=== PATIENT | female | born 1960 | race Caucasian/White ===

== ENCOUNTER 2019-04-17 06:29 | Inpatient (IN) | payer OTHER ==
[2019-04-17] MEDS ORDERED: Acetaminophen 500 MG Tab PO ONE (06:45)
[2019-04-17] MEDS ORDERED: Scopolamine 1.5 MG Transdermal Patch TRDERM ONE (06:45)
[2019-04-17] MEDS ORDERED: Gabapentin 300 MG Cap PO ONE (06:45)
[2019-04-17] MEDS ORDERED: Celecoxib 200 MG Cap PO ONE (06:45)
[2019-04-17] MEDS ORDERED: cefOXitin 2 GM Vial ONE (06:52)
[2019-04-17] MEDS ORDERED: Dextrose 5%-Lactated Ringers 1,000 ML IV SCH (07:00)
[2019-04-17] MEDS ORDERED: Propofol 200 MG/20 ML SDV ONE (07:10)
[2019-04-17] MEDS ORDERED: Succinylcholine 200 MG/10 ML MDV ONE (07:10)
[2019-04-17] MEDS ORDERED: Glycopyrrolate 0.2 MG/ML 5 ML MDV ONE (07:10)
[2019-04-17] MEDS ORDERED: Dexamethasone 4 MG/ML SDV ONE (07:10)
[2019-04-17] MEDS ORDERED: Rocuronium 50 MG/5 ML Vial ONE (07:10)
[2019-04-17] MEDS ORDERED: fentaNYL 250 MCG/5 ML SDV ONE ×2 (07:10→09:04)
[2019-04-17] MEDS ORDERED: Neostigmine Methylsulfate 1 MG/ML 5 ML Syringe ONE (07:10)
[2019-04-17] MEDS ORDERED: Ondansetron 4 MG/2 ML SDV ONE (07:10)
[2019-04-17] MEDS ORDERED: Lactated Ringers 1,000 ML ONE (07:12)
[2019-04-17 07:18] LABS: HEMOGLOBIN A1C 5.7 % (4.5-6.2)
[2019-04-17] MEDS ORDERED: cefOXitin 2 GM in Sodium Chloride 0.9% 50 ML IV ONE (07:30)
[2019-04-17] MEDS ORDERED: Ketamine 500 MG/5 ML MDV IV SCH (08:00)
[2019-04-17] MEDS ORDERED: Ketamine 50 MG in Sodium Chloride 0.9% 49.5 ML IV SCH (08:00)
[2019-04-17] MEDS ORDERED: Lidocaine 2% 100 MG/5 ML Syringe IVPUSH SCH (08:00)
[2019-04-17] MEDS ORDERED: Lidocaine 0.4%/D5W 2 GM/500 ML BAG IV SCH (08:00)
[2019-04-17] MEDS ORDERED: Labetalol 20 MG/4 ML Syringe ONE (09:28)
[2019-04-17] MEDS ORDERED: Metoclopramide 10 MG/2 ML SDV IVPUSH PRN (12:35)
[2019-04-17] MEDS ORDERED: Ondansetron 4 MG/2 ML SDV IVPUSH PRN (12:35)
[2019-04-17] MEDS ORDERED: Labetalol 20 MG/4 ML Syringe IVPUSH PRN (12:35)
[2019-04-17] MEDS ORDERED: hydrOXYzine HCl 100 MG/2 ML SDV IM PRN (12:35)
[2019-04-17] MEDS ORDERED: diphenhydrAMINE 50 MG/ML SDV IVPUSH PRN (12:35)
[2019-04-17] MEDS ORDERED: HYDROmorphone 1 MG/ML Syringe IV PRN (12:39)
[2019-04-17] MEDS ORDERED: HYDROmorphone 0.5 MG/0.5 ML Syringe IVPUSH PRN (12:39)
[2019-04-17] MEDS ORDERED: Pantoprazole 40 MG Vial IVPUSH SCH (14:00)
[2019-04-17] MEDS: Gabapentin 250 MG/5 ML Solution ML 470 ML Bottle PO SCH ×2 (14:27→21:39)
[2019-04-17] MEDS: Acetaminophen Soln 650 MG/20.3 ML UD Cup PO SCH ×2 (14:28→20:15)
[2019-04-17] MEDS: cefOXitin 2 GM in Sodium Chloride 0.9% 50 ML IV SCH ×3 (15:44→22:08)
[2019-04-17] MEDS: Heparin Sodium 5,000 Units/ML Vial SUBCUT SCH (15:46)
[2019-04-17] MEDS ORDERED: MVI, Adult with Vitamin K 10 ML, Thiamine 200 MG, Chromium/Copper/Mang/Selen/Zn 1 ML in... IV SCH ×4 (16:00)
[2019-04-17] MEDS: Dextrose 5%-Lactated Ringers 1,000 ML IV SCH (20:52)
[2019-04-18] MEDS: Acetaminophen Soln 650 MG/20.3 ML UD Cup PO SCH ×4 (03:00→20:24)
[2019-04-18] MEDS: Heparin Sodium 5,000 Units/ML Vial SUBCUT SCH ×2 (03:00→15:43)
[2019-04-18] MEDS: cefOXitin 2 GM in Sodium Chloride 0.9% 50 ML IV SCH ×5 (03:03→20:24)
[2019-04-18] MEDS ORDERED: Iopamidol 612 MG/ML 50 ML SDV PO STA (03:07)
[2019-04-18] MEDS: Dextrose 5%-Lactated Ringers 1,000 ML IV SCH ×2 (03:22→09:34)
--- NOTE | 2019-04-18 04:09 | CRLCR ---
Indication: Thomas-en-Y leak check. Technique: Abdomen 2 view Comparison: None Findings/Impression: Two submitted images. On the 1st image the patient is status post Thomas-en-Y with oral contrast in the distal esophagus as well as proximal small bowel. Left upper quadrant drain and right upper quadrant surgical clips are present. On the 2nd image, there is continued transit into the small bowel without definite evidence of leak. Dictated by Russ Piña MD @ Apr 18 2019 4:07AM Signed by Dr. Russ Piña @ Apr 18 2019 4:08AM
[2019-04-18] MEDS ORDERED: Ondansetron 4 MG Tab.DIS PO PRN (07:05)
[2019-04-18] MEDS ORDERED: hydrOXYzine HCl 25 MG Tab PO PRN (07:06)
[2019-04-18] MEDS ORDERED: valACYclovir 1,000 MG Tab PO SCH (09:00)
[2019-04-18] MEDS: Celecoxib 200 MG Cap PO SCH (09:13)
[2019-04-18] MEDS: Hydrochlorothiazide 12.5 MG Cap PO SCH (09:16)
[2019-04-18] MEDS: Gabapentin 250 MG/5 ML Solution ML 470 ML Bottle PO SCH ×3 (09:17→20:24)
[2019-04-18] MEDS: Lisinopril 10 MG Tab PO SCH (09:24)
[2019-04-18] MEDS: SCOPOLAMINE PATCH CHECK TOP SCH (09:44)
--- NOTE | 2019-04-18 09:58 | PN ---
DATE OF SERVICE: 04/18/2019 SUBJECTIVE: Zandra is postoperative day #1. Vital signs have been stable. She was quite sleepy, seen doubled, felt dizzy. Lidocaine and scopolamine patches discontinued and her symptoms cleared. Oral intake, 590. Urine output, 2550. GAYLA put out 138 mL of a light pink drainage. REVIEW OF SYSTEMS: Remainder of review of systems negative for any pertinent positives and negatives. OBJECTIVE: GENERAL: Zandra Ivey is a 59-year-old female. She is alert and orientated. VITAL SIGNS: TPR 97.6, 80, 16. Blood pressure is 111/66. HEENT: Negative. NECK: Supple. HEART: Regular rate and rhythm. LUNGS: Clear. ABDOMEN: Dressing dry and intact. GAYLA drain intact. EXTREMITIES: Without peripheral edema. ASSESSMENT: Laparoscopic Thomas-en-Y gastric bypass surgery, liver biopsy, repair of diaphragmatic hernia, excision of mediastinal lipoma for morbid obesity, hepatomegaly, diaphragmatic hernia, and mediastinal lipoma. Date of surgery, 04/17/2019. Surgeon, Scar Salazar MD. PLAN: 1. Decrease IV to 100 mL/hour. 2. Step 2 with no cereal gastric bypass diet. 3. Discontinue IV Dilaudid. 4. Atarax 25 mg q.4 hours p.o. p.r.n. pain. 5. Zofran ODT 4 mg every 4 hours p.r.n. nausea. 6. Communication order, 3 med cups per hour/one med cup every 20 minutes to assure adequate oral intake. 7. Dressing off, may shower. 8. Good pulmonary toilet. 9. We will evaluate p.r.n. or in a.m. Bebe Davis PA-C /[id number]
[2019-04-18] MEDS ORDERED: Pantoprazole 40 MG Delayed-Release Granules 1 Packet PO SCH (14:00)
[2019-04-18] MEDS ORDERED: valACYclovir 1,000 MG Tab PO PRN (14:23)
[2019-04-18] MEDS ORDERED: MVI, Adult with Vitamin K 10 ML, Thiamine 200 MG, Chromium/Copper/Mang/Selen/Zn 1 ML in... IV SCH ×4 (16:00)
[2019-04-19] MEDS: Dextrose 5%-Lactated Ringers 1,000 ML IV SCH (02:22)
[2019-04-19] MEDS: Acetaminophen Soln 650 MG/20.3 ML UD Cup PO SCH ×2 (03:20→08:54)
[2019-04-19] MEDS: Heparin Sodium 5,000 Units/ML Vial SUBCUT SCH (03:20)
[2019-04-19] MEDS ORDERED: Magnesium Hydroxide 400 MG/5 ML Susp 30 ML Cup PO ONE ×3 (07:25→10:00)
[2019-04-19] MEDS: Hydrochlorothiazide 12.5 MG Cap PO SCH (08:54)
[2019-04-19] MEDS: Celecoxib 200 MG Cap PO SCH (08:54)
[2019-04-19] MEDS: Lisinopril 10 MG Tab PO SCH (08:55)
[2019-04-19] MEDS ORDERED: Cyanocobalamin (Vitamin B12) 1,000 MCG/ML SDV IM ONE (09:00)
[2019-04-19] MEDS: Gabapentin 250 MG/5 ML Solution ML 470 ML Bottle PO SCH (09:36)
[2019-04-19] MEDS: SCOPOLAMINE PATCH CHECK TOP SCH (09:37)
--- NOTE | 2019-04-22 08:09 | DISCH ---
FINAL DIAGNOSES: 1. Morbid obesity. 2. Marked hepatomegaly. 3. Paraesophageal diaphragmatic hernia associated with mediastinal lipoma. 4. History of hypertension. 5. History of hyperlipidemia. 6. Prediabetes. OPERATIVE PROCEDURES: This was done on 04/17/2019, diagnostic laparoscopy with: 1. Laparoscopic Thomas-en-Y gastric bypass with long limb gastroenterostomy. 2. Ariel-Cut needle liver biopsy. 3. Repair of paraesophageal diaphragmatic hernia. 4. Excision of mediastinal lipoma. HOSPITAL COURSE: This is a 59-year-old presenting with longstanding morbid obesity and increasingly significant comorbidities. After preoperative evaluation and discussion, she wished to proceed with a gastric bypass procedure. This was done, along with the above- noted procedures on 04/17/2019. Postoperatively, she had no significant problems and will be discharged home on Celebrex and Tylenol for pain. Otherwise, she will continue with her usual medications, splitting those for the first 2 weeks postoperatively. She will be instructed to stay on a step-2 diet until the first appointment, which will be with Bebe Davis, at [facility] in [place], on Friday, March 29, 2019. To hold on her vitamin supplements until the first appointment as well.
--- NOTE | 2019-05-02 12:34 | OR ---
DATE OF PROCEDURE: 04/17/2019 SURGEON: Scar Salazar MD PREOPERATIVE DIAGNOSIS: Morbid obesity. POSTOPERATIVE DIAGNOSES: 1. Morbid obesity. 2. Marked hepatomegaly. 3. Paraesophageal diaphragmatic hernia. 4. Mediastinal lipoma. OPERATIVE PROCEDURE: Diagnostic laparoscopy with: 1. Biopsy of Thomas-en-Y gastric bypass along with gastroenterostomy (61091). 2. Ariel-Cut needle liver biopsy (41009). 3. Repair of paraesophageal diaphragmatic hernia (19463). 4. Excision of mediastinal lipoma (51573). ANESTHESIA: General. [employer] NETWORK ANALYST: Bebe Davis PA-C. INDICATIONS FOR PROCEDURE: This is a 59-year-old presenting with longstanding morbid obesity and increasingly significant comorbidities. After preoperative evaluation and discussion, she wished to proceed with a gastric bypass procedure. Potential risks of the procedure including bleeding, infection, leaks from various GI tract closures, problems with bowel obstruction over time, as well as possibility of cardiopulmonary, septic, or hemorrhagic complications leading to were discussed and the patient wishes to proceed. DETAILS OF PROCEDURE: The patient was taken to the operating room and placed in a supine position. After general endotracheal anesthesia was induced and the patient converted to a lithotomy position, the abdomen was then prepped and draped. At 15 cm inferior and 5 cm left of the xiphoid process, a transverse incision was made and the peritoneal cavity entered under direct vision with an Optiview trocar and inflated to 15 mmHg pressure with CO2. Following this, laparoscope was reinserted. No underlying trocar insertion site injuries were seen. Bilateral transversus abdominis plane blocks were then placed, and 5 additional trocars were placed across the upper and mid abdomen. The patient was initially noted to have a marked hepatomegaly with liver being grossly fatty infiltrated. Ariel-Cut needle biopsies were obtained from left lobe of the liver. Minimal bleeding from biopsy sites was controlled with electrocautery. The omentum was then divided in the midline up to the level of the transverse colon. This allowed identification of the small bowel at the ligament of Treitz. Small bowel was then traced out 150 cm distal to that point where it was divided transversely with a LAVINIA stapler. Small bowel was then traced out an additional 200 cm where the [id number] enteroenterostomy was accomplished with internal firing of the Endo-LAVINIA 60 mm stapler. Common opening was then closed transversely with the same stapler and the angles of anastomosis and mesenteric defect were approximated with some 0 Ethibond stitch along with 4 mL of fibrin sealant. The divided Thomas limb was then from the mesentery for a few centimeters, which allowed an antecolic position of the Thomas limb up to the level of the gastroesophageal junction without tension. The liver was then retracted anteriorly. The patient was noted to have moderate-sized paraesophageal diaphragmatic hernia. Perineum overlying this was incised as the hernia was reduced and dissection of the crura accomplished. During the course of dissection, mediastinal lipoma roughly size of a ping-pong ball was identified and this was excised to allow more adequate closure of the diaphragmatic hernia. The hernia was repaired anteriorly with a series of Ethibond sutures reinforced with PTFE pledgets. The gastrointestinal balloon catheter was then inflated to 15 mL and pulled up snugly against the EG junction. The gastric wall over the apex of balloon was marked with electrocautery and balloon catheter deflated and pulled up from the esophagus. The lesser omental tissue adjacent to the gastric cardia was then incised allowing dissection of the stomach behind the area of the gastric cardia. Pouch formation was initiated with transverse firing of the LAVINIA stapler at the level of the cauterized mina in the gastric cardia and then completing with additional firings of LAVINIA stapler up to and through the angle of His. Upon completion of the pouch, both staple lines were noted to be intact. The anvil of a 25-mm EEA stapler was then attached to Meriden sump type tube. The latter was brought down through the mouth and through an opening in the gastric pouch allowing the anvil likewise to be pulled down to within the gastric pouch. The divided end of the Thomas limb was then opened and main body of the EEA stapler brought up the anvil and united with it, thus creating the gastrojejunostomy. Upon removal of the stapler, double donuts of mucosa were noted within it. The small bowel was closed off with the vascular staple line. Gastrojejunostomy was reinforced with some 3-0 Vicryl seromuscular stitch along with fibrin sealant. A leak test was accomplished with injection of 120 mL of air in the gastric pouch while it was submerged with cefoxitin-containing saline solution. No leaks were identified. Single Jewel-Martinez drain was taken through the left lateral trocar site and positioned adjacent to the gastrojejunostomy and from there up into the splenic fossa. The trocars were then sequentially removed and the peritoneal cavity deflated. The incisions were closed with 4-0 Vicryl skin stitch, which was also used to fix the drain. The patient was taken to the recovery room in satisfactory condition. Physician conference assistant, Bebe Davis, played an essential role in assisting in this case, helping to position the patient, retract structures as needed, as well as suturing and cutting sutures when indicated. Her presence improved patient safety and decreased operative time. Scar Salazar MD /[id number]
== END 2019-04-19 10:00 | disposition home or self-care (01) | DRG 621 ==
LOC: JP.SDSSCHI 06:29 → JP.SDS 06:29 → EDSTATUS 08:45 → JP.MS 10:40
PROVIDERS: ADMIT Surgery; ATTEND Surgery
PROC: 0D164ZA Bypass Stomach to Jejunum, Percutaneous Endoscopic Approach (ICD-10-PCS; principal; 2019-04-17)
PROC: 0FB24ZX Excision of Left Lobe Liver, Percutaneous Endoscopic Approach, Diagnostic (ICD-10-PCS; 2019-04-17)
PROC: 0BQT4ZZ Repair Diaphragm, Percutaneous Endoscopic Approach (ICD-10-PCS; 2019-04-17)
PROC: 0WBC4ZZ Excision of Mediastinum, Percutaneous Endoscopic Approach (ICD-10-PCS; 2019-04-17)
DX: E66.01 Morbid (severe) obesity due to excess calories (principal); R16.0 Hepatomegaly, not elsewhere classified; K44.9 Diaphragmatic hernia without obstruction or gangrene; D17.4 Benign lipomatous neoplasm of intrathoracic organs; I10 Essential (primary) hypertension; E78.5 Hyperlipidemia, unspecified; R73.03 Prediabetes; G47.00 Insomnia, unspecified; M13.811 Other specified arthritis, right shoulder; Z90.49 Acquired absence of other specified parts of digestive tract; Z98.890 Other specified postprocedural states; Z79.899 Other long term (current) drug therapy; Z98.51 Tubal ligation status; Z88.5 Allergy status to narcotic agent; Z91.030 Bee allergy status; Z68.41 Body mass index [BMI] 40.0-44.9, adult
CPT/HCPCS: 36415; 74240; 80053; 82962; 83036; 83735; 84100; 85027; 86850; 86900; 86901; 88304; 88307; 88313; 94762; A9270-GY; C9113; J0171; J0330; J0694; J1100; J1644; J2001; J2405; J2704; J2710; J2795; J3010; J3411; J3420; J3490; J7042; J7050; J7120; Q9967